=== PATIENT | female | born 1995 | race Caucasian/White ===

== ENCOUNTER 2017-09-17 20:03 | Emergency (ER) | payer OTHER ==
[2017-09-17] MEDS ORDERED: NS 0.9% 1000 ML* 1,000 ML IV ONE (21:42)
[2017-09-17] MEDS ORDERED: Ondansetron INJ* 2 MG/ML VIAL IV ONE (21:42)
[2017-09-17] MEDS ORDERED: Morphine INJ* 4 MG/ML 1 ML CARPUJECT IV ONE (21:42)
[2017-09-17 22:24] LABS: Hematocrit 42 % (35-47); Hemoglobin 13.7 g/dl (12.0-16.0); Mean Corpuscular HGB Conc 33 g/dl (31-36); Mean Corpuscular Hemoglobin 29 pg (27-31); Mean Corpuscular Volume 89 fL (80-97); Mean Platelet Volume 9 um3 (7.4-10.4); Red Blood Count 4.68 10^6/ul (4.0-5.4); Red Cell Distribution Width 13 % (10.5-15); White Blood Count 8.1 10^3/ul (3.5-10.8)
[2017-09-17 22:37] LABS: Urine Bilirubin Negative (Negative); Urine Glucose Negative (Negative); Urine Nitrite Negative (Negative)
[2017-09-17 22:43] LABS: ALT 20 U/L (7-52); AST 22 U/L (13-39); Albumin 4.5 g/dL (3.2-5.2); Alkaline Phosphatase 94 U/L (34-104); Anion Gap 6 mmol/L (2-11); BUN/Creatinine Ratio 10.3 (8-20); Blood Urea Nitrogen 8 mg/dL (6-24); CO2 Carbon Dioxide 23 mmol/L (22-32); Calcium 9.8 mg/dL (8.6-10.3); Chloride 107 mmol/L (101-111); EGFR African American 122.4 (>60); EGFR Non-African American 95.1 (>60); Globulin 2.8 g/dL (2-4); Glucose 99 mg/dL (70-100); Lipase 32 U/L (11.0-82.0); Potassium 3.8 mmol/L (3.5-5.0); Sodium 136 mmol/L (133-145); Total Protein 7.3 g/dL (6.4-8.9)
[2017-09-17] MEDS ORDERED: Iohexol 300* (CONTRAST) 10 ML SDV IV ONE (23:10)
[2017-09-18] MEDS ORDERED: Ketorolac INJ* 30 MG/ML 1 ML VIAL IV PUSH ONE (01:59)
--- NOTE | 2017-09-18 03:17 | ED ---
Reid Hardy Nikita, scribed for Ethan Pruitt on 09/18/17 at 0226 . Progress - Progress Note Progress Note: Pt was signed out from Dr. Sepulveda, pending disposition, awaiting CT abd/pel. CT abd/pel reveals: Negative for appendicitis. Normal appendix visualized. No bowel obstruction free air or free fluid. The small bowel loops are not abnormally dilated but they are fluid-filled and contrast is slow to move through the bowel loops. This could be related to ileus/enteritis. Normal kidneys, urinary tract, and urinary bladder. Pt will be discharged with instructions to follow up with PCP in 3 days. Course/Dx - Diagnoses Provider Diagnoses: Right lower quadrant abdominal pain The documentation as recorded by the Reid ramos Nikita accurately reflects the service I personally performed and the decisions made by Edmond hanna Emmanuel.
[2017-09-18 03:37] VITALS: BP 111/76
--- NOTE | 2017-09-18 08:09 | RAD ---
INDICATION: RIGHT lower quadrant pain, anorexia, assess for appendicitis. COMPARISON: No relevant prior exams available on the [facility] PACS for comparison. TECHNIQUE: Multidetector CT images were obtained from the lung bases to the ischial tuberosities with 91 mL Omnipaque 300 IV and oral contrast. Multiplanar reformation. REPORT: Unremarkable visualized inferior thorax. The liver, gallbladder, pancreas, and spleen are unremarkable. Negative for CT abnormality of the upper GI, small bowel, appendix visualized extending medial and posterior from the cecum, or colon. Negative for ascites, free air, hernias. Unremarkable adrenal glands. Unremarkable kidneys with symmetric nephrograms and pyelograms. Unremarkable nondilated ureters and largely decompressed urinary bladder. Unremarkable retroverted uterus and LEFT adnexal region. Suggestion of a 1.5 cm exophytic RIGHT ovarian cyst or paraovarian cyst. Negative for lymphadenopathy. Normal diameter abdominal aorta and iliac arteries. Partially decompressed IVC indicating lower volume state. Negative for suspicious osseous lesions. IMPRESSION: 1. Normal appendix documented. 2. No pathologic process of the alimentary tract evident. 3. Negative for obstructive uropathy. 4. Suggestion of a 1.5 cm exophytic RIGHT ovarian cyst or paraovarian cyst. This is a low suspicion finding based on small size and low density.
== END 2017-09-18 03:30 | disposition home or self-care (01) ==
LOC: ED 20:03
DX: R10.31 Right lower quadrant pain (principal)
CPT/HCPCS: 36415; 74177; 80053; 81003; 83605; 83690; 84702; 85025; 86140; 96374; 96375; 99284; J1885; J2270; J2405; Q9967